=== PATIENT | male | born 1985 | race Caucasian/White ===

== ENCOUNTER 2020-12-23 17:53 | Emergency (ER) | payer OTHER ==
[~2020-12-23 17:53] MED LIST: HYDACE5 PO; OXYACE5T PO; RXOXYACE PO
== END 2020-12-23 19:07 | disposition left against medical advice (07) ==
LOC: ER 17:53
DX: Z53.21 Procedure and treatment not carried out due to patient leaving prior to being seen by health care provider (principal)

== ENCOUNTER 2020-12-23 20:33 | Emergency (ER) | payer OTHER ==
[~2020-12-23] VITALS: Ht 175.3 cm; Wt 63.5 kg
== END 2020-12-23 22:15 | disposition left against medical advice (07) ==
LOC: ER 20:33
DX: Z53.21 Procedure and treatment not carried out due to patient leaving prior to being seen by health care provider (principal)

== ENCOUNTER 2021-03-21 06:05 | Emergency (ER) | payer OTHER ==
[~2021-03-21] VITALS: Ht 175.3 cm; Wt 61.2 kg
[2021-03-21] MEDS ORDERED: Cleocin HCl300 MG PO (08:23)
== END 2021-03-21 09:55 | disposition home or self-care (01) ==
LOC: ER 06:05
DX: L03.011 Cellulitis of right finger (principal); K13.0 Diseases of lips; F17.200 Nicotine dependence, unspecified, uncomplicated; Z88.2 Allergy status to sulfonamides
CPT/HCPCS: 99283

== ENCOUNTER 2021-03-24 11:43 | Inpatient (IN) | payer OTHER ==
[~2021-03-24] VITALS: Ht 175.3 cm; Wt 63.7 kg
[~2021-03-24 11:43] MED LIST changes: +Cleocin HCl300 MG PO
[2021-03-24 13:51] LABS: BASOPHILS ABSOLUTE AUTO 0.04 K/mm3 (0.00-0.23); BASOPHILS PERCENT AUTO 1 % (0-2); EOSINOPHILS ABSOLUTE AUTO 0.13 K/mm3 (0.00-0.68); EOSINOPHILS PERCENT AUTO 2 % (0-6); Hematocrit 37.5 % (37.0-53.0); IMMATURE GRAN ABSOLUTE AUTO 0.01 K/mm3 (0.00-0.10); IMMATURE GRAN PERCENT AUTO 0 % (0-1); LYMPHOCYTES ABSOLUTE AUTO 1.98 K/mm3 (0.84-5.20); LYMPHOCYTES PERCENT AUTO 24 % (21-46); MONOCYTES ABSOLUTE AUTO 0.88 K/mm3 (0.16-1.47); MONOCYTES PERCENT AUTO 11 % (4-13); Mean Corpuscular HGB 30.4 pg (26.0-34.0); Mean Corpuscular HGB Conc 34.7 g/dL (31.5-36.5); Mean Corpuscular Volume 88 fL (80-100); Mean Platelet Volume 7.8 fL (9.1-12.4); NEUTROPHILS ABSOLUTE AUTO 5.22 K/mm3 (1.96-9.15); NEUTROPHILS PERCENT AUTO 63 % (41-73); Platelet Count 268 K/mm3 (150-400); RDW Coefficient Variation 11.3 % (11.7-14.2); RDW Standard Deviation 36.1 fL (35.1-46.3); Red Blood Cell Count 4.27 M/mm3 (4.30-5.90); White Blood Cell Count 8.26 K/mm3 (4.00-11.30)
[2021-03-24 14:03] LABS: Alanine Aminotransfer (ALT/SGP 25 U/L (12-78); Albumin, Blood 3.5 g/dL (3.4-5.0); Albumin/Globulin Ratio 0.9 (0.8-1.8); Alk Phos 81 U/L (50-136); Anion Gap 3 mmol/L (6-16); Aspartate Aminotrans (AST/SGOT 19 U/L (12-37); Bilirubin, Total 0.2 mg/dL (0.1-1.0); Blood Urea Nitrogen 12 mg/dL (8-24); Bun/Creatinine Ratio 13.9 (12.0-20.0); CO2, Blood 30 mmol/L (21-32); Calcium, Blood 8.8 mg/dL (8.5-10.1); Chloride, Blood 102 mmol/L (98-108); Creatinine, Blood 0.87 mg/dL (0.60-1.20); Globulin, Blood 3.8 g/dL (2.2-4.0); Glomerular Filtration Rate >60 (60-); Glucose, Blood 98 mg/dL (70-99); Potassium, Blood 3.5 mmol/L (3.5-5.5); Sodium, Blood 135 mmol/L (136-145); Total Protein, Blood 7.3 g/dL (6.4-8.2)
--- NOTE | 2021-03-24 17:52 | NUR ---
PT ARRIVED TO ROOM 232 FROM ER DEPT VIA WC DEPT PT IS PAINFUL HIS R THUMB IS SWOLLEN WITH A PUNCTURE WOUND TO THE PAD PT HAS DK BROWN PAINT UNABLE TO TELL IF IT IS RED NO FEVERS PER PT PO PAIN MEDS GIVEN IN ER WILL PAWEL PT DINNER NPO AFTER MN
--- NOTE | 2021-03-24 18:14 | NUR ---
ASKED PT IF THEY WOULD LIKE HEAT OR ICE PACK PT DECLINED STATED HE WANTS TO GO OUT AND SMOKE WILL PLACE A NICTOTINE PATCH
--- NOTE | 2021-03-24 18:51 | NUR ---
pt eating dinner
--- NOTE | 2021-03-25 05:05 | NUR ---
SHIFT SUMMARY: KENZIE IS A&OX4. VSS, NO ACUTE EVENTS OVERNIGHT. HE WAS MADE NPO AT MIDNIGHT EXCEPT FOR MEDS. HE IS INDEPENDENT IN THE ROOM. IV TO R AC PATENT. HE REPORTS MINIMAL PAIN CONTROL WITH THE DILAUDID AND NORCO. HE IS ABLE TO MAKE HIS NEEDS KNOWN. HE DENEIS ANY DIFFICULTY URINATING. PRIOR TO MIDNIGHT, HE TOLERATED PO INTAKE WELL. HE IS LYING IN BED WITH THE CALL LIGHT IN REACH. WILL REPORT TO DAY SHIFT RN.
[2021-03-25 05:12] LABS: BASOPHILS ABSOLUTE AUTO 0.03 K/mm3 (0.00-0.23); BASOPHILS PERCENT AUTO 0 % (0-2); EOSINOPHILS ABSOLUTE AUTO 0.18 K/mm3 (0.00-0.68); EOSINOPHILS PERCENT AUTO 2 % (0-6); Hemoglobin 13.5 g/dL (13.5-17.5); IMMATURE GRAN ABSOLUTE AUTO 0.02 K/mm3 (0.00-0.10); IMMATURE GRAN PERCENT AUTO 0 % (0-1); LYMPHOCYTES ABSOLUTE AUTO 2.22 K/mm3 (0.84-5.20); LYMPHOCYTES PERCENT AUTO 25 % (21-46); MONOCYTES ABSOLUTE AUTO 0.79 K/mm3 (0.16-1.47); MONOCYTES PERCENT AUTO 9 % (4-13); Mean Corpuscular HGB 30.3 pg (26.0-34.0); Mean Corpuscular HGB Conc 34.6 g/dL (31.5-36.5); Mean Corpuscular Volume 87 fL (80-100); Mean Platelet Volume 8.2 fL (9.1-12.4); NEUTROPHILS ABSOLUTE AUTO 5.64 K/mm3 (1.96-9.15); NEUTROPHILS PERCENT AUTO 64 % (41-73); Platelet Count 292 K/mm3 (150-400); RDW Coefficient Variation 11.5 % (11.7-14.2); Red Blood Cell Count 4.46 M/mm3 (4.30-5.90); White Blood Cell Count 8.88 K/mm3 (4.00-11.30)
[2021-03-25 05:30] LABS: Anion Gap 4 mmol/L (6-16); Blood Urea Nitrogen 15 mg/dL (8-24); CO2, Blood 29 mmol/L (21-32); Calcium, Blood 8.5 mg/dL (8.5-10.1); Chloride, Blood 104 mmol/L (98-108); Creatinine, Blood 0.88 mg/dL (0.60-1.20); Glomerular Filtration Rate >60 (60-); Glucose, Blood 96 mg/dL (70-99); Potassium, Blood 3.8 mmol/L (3.5-5.5); Sodium, Blood 137 mmol/L (136-145)
[2021-03-25 05:50] LABS: SARS-Cov-2 (COVID-19) PCR, MMC NEGATIVE (NEGATIVE)
--- NOTE | 2021-03-25 14:33 | NUR ---
PT ARRIVED BACK TO FLOOR AT 1415. ABLE TO STAND AND TRANSFER TO BED. NOAM WRAP ON R THUMB, PT REPORTS PAIN IN THAT THUMB. MEDICATED PER EMAR. HE IS CURRENTLY SITTING IN BED EATING SNACKS THAT HE HAD BROUGHT WITH HIM. REQUESTED ICE WATER AND TOLERATING PO WELL. AA0X4, PT IS AWAKE AND ANSWERING QUESTIONS APPROPRIATLY.
--- NOTE | 2021-03-25 17:41 | NUR ---
SHIFT SUMMARY S/P I&D R THUMB NO ACUTE CHANGES SINCE ARRIVAL TO FLOOR FROM PACU. HE CONTINUES TO REPORT PAIN AT 8/10 BUT SLEEPS FREQUENTLY WITH NO GRIMACE ON HIS FACE. HE IS TOLERATING PO WELL. NO NAUSEA. PT STILL IND IN ROOM, AMBULATES WELL WITH NO WEAKNESS. PLAN IS FOR DRESSING TO BE CHANGED WITH DR. LEVY TOMORROW AND POSSIBLY DISCHARGE.
[2021-03-26 03:04] LABS: BASOPHILS ABSOLUTE AUTO 0.04 K/mm3 (0.00-0.23); BASOPHILS PERCENT AUTO 1 % (0-2); EOSINOPHILS ABSOLUTE AUTO 0.17 K/mm3 (0.00-0.68); EOSINOPHILS PERCENT AUTO 2 % (0-6); Hematocrit 41.9 % (37.0-53.0); Hemoglobin 14.8 g/dL (13.5-17.5); IMMATURE GRAN ABSOLUTE AUTO 0.02 K/mm3 (0.00-0.10); IMMATURE GRAN PERCENT AUTO 0 % (0-1); LYMPHOCYTES ABSOLUTE AUTO 2.33 K/mm3 (0.84-5.20); LYMPHOCYTES PERCENT AUTO 28 % (21-46); MONOCYTES PERCENT AUTO 10 % (4-13); Mean Corpuscular HGB 30.7 pg (26.0-34.0); Mean Corpuscular HGB Conc 35.3 g/dL (31.5-36.5); Mean Corpuscular Volume 87 fL (80-100); Mean Platelet Volume 7.9 fL (9.1-12.4); NEUTROPHILS ABSOLUTE AUTO 5.04 K/mm3 (1.96-9.15); NEUTROPHILS PERCENT AUTO 60 % (41-73); Platelet Count 290 K/mm3 (150-400); RDW Coefficient Variation 11.5 % (11.7-14.2); RDW Standard Deviation 37.1 fL (35.1-46.3); Red Blood Cell Count 4.82 M/mm3 (4.30-5.90)
[2021-03-26 03:20] LABS: Anion Gap 6 mmol/L (6-16); Blood Urea Nitrogen 10 mg/dL (8-24); Bun/Creatinine Ratio 11.7 (12.0-20.0); CO2, Blood 28 mmol/L (21-32); Calcium, Blood 8.7 mg/dL (8.5-10.1); Chloride, Blood 104 mmol/L (98-108); Creatinine, Blood 0.86 mg/dL (0.60-1.20); Glomerular Filtration Rate >60 (60-); Glucose, Blood 98 mg/dL (70-99); Potassium, Blood 3.9 mmol/L (3.5-5.5); Sodium, Blood 138 mmol/L (136-145); Vancomycin, Trough 5.1 ug/mL (5.0-10.0)
--- NOTE | 2021-03-26 04:42 | NUR ---
SHIFT SUMMARY: LAURA AROUSES EASILY AND RESPONDS APPROPRIATELY. VSS, NO ACUTE EVENTS OVERNIGHT. HE HAS RESTED QUIETLY WITH HIS EYES CLOSED AND EVEN, UNLABORED RESPIRATIONS FOR THE MAJORITY OF THE SHIFT. HE REPORTS ADEQUATE PAIN CONTROL WITH TYLENOL. DRESSING TO RIGHT THUMB C/D&I. IV TO R AC PATENT, TOLERATING REGULAR DIET WELL, URINATING WITHOUT DIFFICULTY, INDEPENDENT IN THE ROOM. HE IS LYING IN BED WITH THE CALL LIGHT IN REACH. WILL REPORT TO DAY SHIFT RN.
[2021-03-26] MEDS ORDERED: Norco 5-325 Ta1 EACH PO (10:55)
--- NOTE | 2021-03-26 13:19 | NUR ---
DRESSING CHANGED WITH DR. LEVY. PER DR. LEVY REQUEST PT SHOWERED AND RINSED OUT WOUND MULTIPLE TIMES. DRESSING REPLACED. WITH GAUZE PACKING AND WRAPPED WITH KERLEX AND NOAM WRAP. THIS RN NOTICED A SPLIT IN SKIN WHEN CHANGING THE DRESSING INFERIOR TO OPEN INCISION . PT TOLERATED PROCEDURE WELL, WAS PREMEDICATED WITH X1 DOSE OF IV DILAUDID. PT CURRENTLY TOLERATING PO AND DENIES ANY PAIN CURRENTLY.
--- NOTE | 2021-03-26 16:15 | NUR ---
SHIFT SUMMARY POD 1 I&D R THUMB. AA0X4. DRESSING CHANGED TODAY WITH DR LEVY, SEE PREVIOUS NOTE. PT PAINFUL DURING PROCEDURE. DECLINES PAIN SINCE MEDICATED AT THAT TIME. CURRENTLY SITTING UP IN BED. WATCHING TV. PT MORE ALERT TOWARDS END OF SHIFT. CALLS AND ASKS FOR FOOD OCCASIONALLY. INDEPENDANT IN ROOM. VOIDING WELL. PLAN IS FOR DAILY DRESSING CHANGES. DR LEVY WANTS TO SEE THUMB TOMORROW AND POSSIBLY DISCHARGE TOMORROW.
--- NOTE | 2021-03-26 19:14 | NUR ---
RECEIVED REPORT AND ASSUMED CARE OF PT. HE IS LYING IN BED WITH HIS EYES CLOSED, EVEN UNLABORED RESPIRATIONS. ERIKA.
--- NOTE | 2021-03-26 20:20 | NUR ---
IV TO R AC, HAS BEEN PRESENT SINCE ADMIT.
--- NOTE | 2021-03-27 04:51 | NUR ---
SHIFT SUMMARY: LAURA IS A&OX4. VSS, NO ACUTE EVENTS OVERNIGHT. HE REPORTS ADEQUATE PAIN CONTROL WITH ONE TABLET OF NORCO. HE IS TOLERATING PO INTAKE WELL, INDEPENDENT IN THE ROOM, URINATING WITHOUT DIFFICULTY. NOAM WRAP TO R THUMB C/D&I. IV TO R AC PATENT. HE IS LYING IN BED WITH THE CALL LIGHT IN REACH. WILL REPORT TO DAY SHIFT RN.
[2021-03-27] MEDS ORDERED: ACET325 PO (16:57)
[2021-03-27] MEDS ORDERED: Clindamycin HC150 MG PO (16:58)
[2021-03-27] MEDS ORDERED: PROBIOTIC1 EA13 PO (16:59)
[2021-03-27] MEDS ORDERED: NARCAN4 M1 (17:00)
--- NOTE | 2021-03-27 17:23 | NUR ---
DISCHARGE SUMMARY PT SEEN BY DR LEVY AT BEDSIDE. DRESSING CHANGED. PATIENT DISCHARGED. RIGHT THUMB REDRESSED. DISCHARGE EDUCATION GIVEN ON WOUND CARE, DRESSING CHANGES, NEW RXS, ACTIVITY LEVEL, AND FOLLOW UP APPOINTMENTS. PATIENT LEFT UNIT ON FOOT WITH MOTHER FOR HOME.
== END 2021-03-27 17:17 | disposition home or self-care (01) | DRG 603 ==
LOC: ER 11:43 → SURS 11:44
PROVIDERS: Family Medicine; Orthopaedic Surgery; Physician Assistant; Surgery; ADMIT Internal Medicine
PROC: 0H9FXZZ Drainage of Right Hand Skin, External Approach (ICD-10-PCS; principal; 2021-03-25 13:30)
DX: L03.011 Cellulitis of right finger (principal); L02.511 Cutaneous abscess of right hand; F15.10 Other stimulant abuse, uncomplicated; F11.10 Opioid abuse, uncomplicated; F17.210 Nicotine dependence, cigarettes, uncomplicated; Z71.6 Tobacco abuse counseling; Z20.822 Contact with and (suspected) exposure to COVID-19; Z88.2 Allergy status to sulfonamides; Z88.1 Allergy status to other antibiotic agents; B95.62 Methicillin resistant Staphylococcus aureus infection as the cause of diseases classified elsewhere
CPT/HCPCS: 36415; 73140; 80048; 80053; 80202; 83605; 85025; 85651; 86140; 87040; 87070; 87077; 87186; 87205; 94760; 96365; 96366; 96367; 96376; 99284-25; A9270; G0378; J0295; J1170; J1650; J2250; J2704; J3010; J3370; J7030; J7040; J7120; U0004

== ENCOUNTER 2021-08-10 04:47 | Emergency (ER) | payer OTHER ==
[~2021-08-10] VITALS: Ht 175.3 cm; Wt 63.5 kg
[~2021-08-10 04:47] MED LIST changes: +ACET325 PO; +Clindamycin HC150 MG PO; +NARCAN4 M1; +Norco 5-325 Ta1 EACH PO; +PROBIOTIC1 EA13 PO
== END 2021-08-10 07:41 | disposition home or self-care (01) ==
LOC: ER 04:47
DX: S61.213A Laceration without foreign body of left middle finger without damage to nail, initial encounter (principal); W22.8XXA Striking against or struck by other objects, initial encounter; Z88.2 Allergy status to sulfonamides; Z79.899 Other long term (current) drug therapy; F17.210 Nicotine dependence, cigarettes, uncomplicated
CPT/HCPCS: 12001; 73140; 99283-25

== ENCOUNTER 2023-07-28 14:45 | Emergency (ER) | payer SELFPAY ==
[~2023-07-28] VITALS: Ht 175.3 cm; Wt 63.5 kg
[2023-07-28 14:48] VITALS: BP 139/87
[2023-07-28] MEDS ORDERED: Cephalexin500 M1 PO (15:07)
== END 2023-07-28 15:11 | disposition home or self-care (01) ==
LOC: ER 14:45
DX: L03.012 Cellulitis of left finger (principal); F17.200 Nicotine dependence, unspecified, uncomplicated
CPT/HCPCS: 99283

== ENCOUNTER 2023-12-15 19:22 | Emergency (ER) | payer SELFPAY ==
[~2023-12-15] VITALS: Ht 175.3 cm; Wt 63.5 kg
[~2023-12-15 19:22] MED LIST changes: +Cephalexin500 M1 PO
[2023-12-15 19:43] LABS: BASOPHILS ABSOLUTE AUTO 0.03 K/mm3 (0.00-0.23); BASOPHILS PERCENT AUTO 0 % (0-2); EOSINOPHILS ABSOLUTE AUTO 0.04 K/mm3 (0.00-0.68); EOSINOPHILS PERCENT AUTO 0 % (0-6); Hematocrit 38.9 % (37.0-53.0); Hemoglobin 13.8 g/dL (13.5-17.5); IMMATURE GRAN ABSOLUTE AUTO 0.03 K/mm3 (0.00-0.10); IMMATURE GRAN PERCENT AUTO 0 % (0-1); LYMPHOCYTES ABSOLUTE AUTO 1.23 K/mm3 (0.84-5.20); LYMPHOCYTES PERCENT AUTO 13 % (21-46); MONOCYTES ABSOLUTE AUTO 1.05 K/mm3 (0.16-1.47); MONOCYTES PERCENT AUTO 11 % (4-13); Mean Corpuscular HGB Conc 35.5 g/dL (31.5-36.5); Mean Corpuscular Volume 87 fL (80-100); NEUTROPHILS ABSOLUTE AUTO 7.06 K/mm3 (1.96-9.15); NEUTROPHILS PERCENT AUTO 75 % (41-73); Platelet Count 213 K/mm3 (150-400); RDW Standard Deviation 38.9 fL (35.1-46.3); Red Blood Cell Count 4.45 M/mm3 (4.30-5.90); White Blood Cell Count 9.44 K/mm3 (4.00-11.30)
[2023-12-15 19:55] LABS: Albumin, Blood 3.2 g/dL (3.4-5.0); Albumin/Globulin Ratio 0.8 (0.8-1.8); Bilirubin, Total 0.7 mg/dL (0.1-1.0); Bun/Creatinine Ratio 11.7 (12.0-20.0); Calcium, Blood 8.8 mg/dL (8.5-10.1); Creatinine, Blood 0.86 mg/dL (0.60-1.20); Globulin, Blood 4.2 g/dL (2.2-4.0); Potassium, Blood 3.7 mmol/L (3.5-5.5); Total Protein, Blood 7.4 g/dL (6.4-8.2)
[2023-12-15] MEDS ORDERED: Ketorolac Tromethamine 15mg Vial IV ONE (23:35)
[2023-12-15] MEDS ORDERED: Lactated Ringer's 1,000 ML IV ONE (23:35)
[2023-12-16 01:03] LABS: Influenza A, PCR NEGATIVE (NEGATIVE); Influenza B, PCR NEGATIVE (NEGATIVE); Resp Syncytial Virus, PCR NEGATIVE (NEGATIVE); SARS-Cov-2 (COVID-19) PCR, MMC NEGATIVE (NEGATIVE)
[2023-12-16 02:04] VITALS: BP 105/75
== END 2023-12-16 02:07 | disposition home or self-care (01) ==
LOC: ER 19:22
PROVIDERS: Emergency Medicine; Student in an Organized Health Care Education/Training Program
DX: R07.9 Chest pain, unspecified (principal); Z88.2 Allergy status to sulfonamides; Z88.8 Allergy status to other drugs, medicaments and biological substances; F17.200 Nicotine dependence, unspecified, uncomplicated
CPT/HCPCS: 0241U; 71046; 80053; 83605; 83690; 84484; 85025; 85379; 96361; 96374; 99285-25; J1885; J7120

== ENCOUNTER 2024-07-29 10:03 | Day surgery (SDC) | payer OTHER ==
[2024-07-29] VITALS (12 sets, daily range): BP systolic 100–133; BP diastolic 68–90
[~2024-07-29] VITALS: Ht 175.3 cm; Wt 63.5 kg
[~2024-07-29 10:03] MED LIST changes: +Lactated Ringer's 1,000 ML IV SCH; +METH40 PO
[2024-07-29] MEDS ORDERED: ATOM10 PO (10:57)
--- NOTE | 2024-07-29 11:13 | NUR ---
Ambulatory in Day Surgery. History, Chart, Medications and Allergies reviewed before start of procedure. Lungs clear T/O to Auscultation. Patient confirms NPO status and agrees with scheduled surgery. Pre-Op teaching done. Pt verbalizes understanding. Patient States Post-Procedure ride home has been arranged.
[2024-07-29] MEDS ORDERED: Midazolam HCl 1MG / ML 2ML Vial ONE (11:50)
[2024-07-29] MEDS ORDERED: Benzocaine Oral Spray 0.5ML UD ONE (11:50)
[2024-07-29] MEDS ORDERED: propofoL 0 ML IV ONE (11:51)
--- NOTE | 2024-07-29 11:57 | NUR ---
07/29/24 Yesica Oconnell CONFIRMED AND REVIEWED H&P, MEDCICATIONS, ALLERGIES, MEDICAL HISTORY, RESPIRATORY HISTORY, VITAL SIGNS, 3-LEAD EKG, CONSENTS, AND PHYSICIAN ORDERS. PATIENT CONFIRMS NPO STATUS AND AGREES WITH SCHEDULED PROCEDURE. MONITOR INTACT WITH CONTINUOUS PULSE OXIMETRY, CAPNOGRAPHY, 3-LEAD EKG, INTERMITTENT BP. SUPPLEMENTAL O2 TO BE TITRATED THROUGHOUT PROCEDURE TO MAINTAIN O2 SATURATION ABOVE 90%. PATIENT DETERMINED TO BE ASA APPROPRIATE FOR PROPOFOL SEDATION PRIOR TO START OF PROCEDURE BY .MALLAMPATI CLASS 2 AIRWAY: COMPLETE VISUALIZATION OF THE UVULA.
--- NOTE | 2024-07-29 12:19 | NUR ---
PT TOLERATING PO FLUIDS AND CRACKERS.
--- NOTE | 2024-07-29 12:29 | NUR ---
Discharge instructions reviewed with patient. Patient verbalizes understanding. Copy given to patient to take home. Patient States Post-Procedure ride home has been arranged.
--- NOTE | 2024-07-29 12:44 | NUR ---
Patient up to Ambulate independently. Gait steady.
--- NOTE | 2024-07-29 12:46 | NUR ---
Discharged via wheelchair to private car for ride home.
== END 2024-07-29 12:46 | disposition home or self-care (01) ==
LOC: ORSCMMR 10:03 → ORD 10:30 → ORSCMMR 10:30
PROVIDERS: Internal Medicine Gastroenterology
PROC: 0DB48ZX Excision of Esophagogastric Junction, Via Natural or Artificial Opening Endoscopic, Diagnostic (ICD-10-PCS; principal; 2024-07-29 10:30)
PROC: 0DB58ZX Excision of Esophagus, Via Natural or Artificial Opening Endoscopic, Diagnostic (ICD-10-PCS; principal; 2024-07-29 10:30)
PROC: 0DB68ZX Excision of Stomach, Via Natural or Artificial Opening Endoscopic, Diagnostic (ICD-10-PCS; principal; 2024-07-29 10:30)
DX: R13.14 Dysphagia, pharyngoesophageal phase (principal); K29.70 Gastritis, unspecified, without bleeding; Z79.899 Other long term (current) drug therapy
CPT/HCPCS: 88305; 88342; A9270; J2250; J2704; J7120